=== PATIENT | male | born 1970 | race Caucasian/White ===

== ENCOUNTER 2024-12-12 20:23 | Emergency (ER) | payer MEDICAID, SELFPAY ==
--- OUTSIDE RECORDS SUMMARY | 2024-12-12 20:25 | XMS_ITS | Clinical Summary ---
Author Organization [facility] Address [address] [place] [id number] Care Team Providers Care Etcher Apprentice Name Role Phone Pcp, No Primary Care Provider Unavailabl e Allergies No known active allergies Medications acetaminophen (TYLENOL EXTRA STRGTH) 500 mg tablet Take 1 Tablet (500 mg) by mouth every 6 hours if needed. Max acetaminophen dose: 4000mg in 24 hrs. 0 2 Active hydrocortisone 0.5 % cream Apply topically to affected area(s) three times daily. 0 2 Active calcium carbonate (Tums) 200 mg calcium (500 mg) chewable tablet Chew 1 Tablet (500 mg) by mouth four times daily with meals and at bedtime. 0 2 Active medication order composer Triple antibiotic ointment PRN TID 0 2 Active meloxicam 15 mg tabletIndicati ons:Rib pain on left side,Chronic left shoulder pain Take 1 Tablet (15 mg) by mouth once daily. with food 30 Tablet 4 Active cyclobenzaprin e (FLEXERIL) 10 mg tabletIndicati ons:Rib pain on left side,Chronic left shoulder pain Take 0.5-1 Tablets (5-10 mg) by mouth at bedtime if needed (muscle tightness). 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 Heart Disease Father Relation Name Status Comments Brother Alive Father Maternal Grandfather Maternal Grandmother Mother Paternal Grandfather Paternal Grandmother Sister 1 Alive Sister 2 Alive Social History Tobacco Use Types Packs/Day Years Used Date Smoking Tobacco: Some Days Cigarettes 1.5 15 Smokeless Tobacco: Never Tobacco Cessation:Ready to Q uit: No; Counseling Given: Yes Alcohol Use Standard Drinks/Week Comments Not Currently 0 (1 standard drink = 0.6 oz pur e alcohol) none since 2018 PHQ-2 Answer Date Recorded PHQ-2 Score 1 01/14/2019 Social Connections Answer Date Recorded Frequency of Communication with Friends and Fami ly Not on file 03/02/2024 Financial Resource Strain Answer Date R ecorded Difficulty of Paying Living Expenses 3 02/21/2023 Difficulty of Paying Living Expenses Not on file 02/21/2023 Food Insecurity Answer Date Recorded Worried About Running Out of Food in the Last Ye ar 1 02/21/2023 Transportation Needs Answer Date Record ed Lack of Transportation (Medical) 1 02/21/2023 Housing Stability Answer Date Recorded Unable to Pay for Housing in the Last Year 1 02/21/2023 Sex and Gender Information Value Date Recorded Sex Assigned at Not on file Legal Sex Male 6:29 AM [employer] Gender Identity Not on file Sexual Orientation Not on file Occupation Industry Job Start Date Job End Date unemployed Not on file Not on file Not on file Obstetrics History Last Filed Vital Signs Vital Sign Reading Time Taken Comments Blood Pressure 122/72 12/04/2023 2:42 PM CDT Pulse 76 12/04/2023 2:42 PM CDT Temperature 36.9 C (98.4 F) 02/21/2023 2:56 PM CDT Respiratory Rate 14 02/21/2023 2:56 PM CDT Oxygen Saturation 97% 02/21/2023 2:56 PM CDT Inhaled Oxygen Concentration - - Weight 97.8 kg (215 lb 8 oz) 12/04/2023 2:42 PM CDT Height 177.8 cm (5' 10) 03/05/2022 12:10 PM CDT Body Mass Index 30.92 03/05/2022 12:10 PM CDT Plan of Treatment Health Maintenance Due Date Last Done Comments HIV for age 15-65 1986 BMI (ht and wt on same day) for age 18+ 1989 Hepatitis C screening for age 18-79 1989 Hepatitis B series for 19+ ( 1 of 3 - 19+ 3-dose series) 1990 Pneumococcal series for age 50+ (1 of 2 - PCV) 1990 Colonoscopy through age 75 2016 Depression screening for age 12+ 01/15/2020 01/15/20 19, 04/01/[address] (for lung CA) age 50-80 2021 Zoster (shingles) series for age 50+ (1 of 2) 2021 Lipids for age 45-75 01/15/2024 01/14/2019 COVID-19 vaccine series (2 - season) 2024 12/02/2020 Influenza Vaccine (Season Ended) 2025 Tetanus booster 04/01/2028 04/01/2018 Tdap Completed 04/01/2018 Procedures Procedure Name Priority Date/Time Associated Diagnosis Comments LIPID PANEL W REFLEX MEASURED LDL Add On 01/14/2019 4:04 PM CDT Chest tightness or pressure from Last 3 Months or Most Recently Relevant to Health Maintenance Results * LIPID PANEL W REFLEX MEASURED LDL (01/14/2019 4:04 PM CDT) CHOLESTEROL,TOTAL 125 100 - 199 mg/dL 01/15/2019 9:45 AM CDT [facility] TRIGLYCERIDES 86 <150 mg/dL 01/15/2019 9:45 AM CDT [facility] HDL CHOLESTEROL 55 >40 mg/dL 9 9:45 AM CDT [facility] NON-HDL CHOLESTEROL 70 <145 mg/dl 01/15/2019 9:45 AM CDT [facility] CHOL/HDL RATIO 2.27 <4.50 01/15/2019 9:45 AM CDT [facility] LDL CHOLESTEROL 53 <=130 mg/dL 01/15/2019 9:45 AM CDT [facility] PROVIDER ORDERED STATUS RANDOM 01/15/2019 9:45 AM CDT [facility] Blood BLOOD SPECIMEN / Unknown Venipuncture / Unknown 01/14/2019 4:04 PM CDT 01/14/2019 4:04 PM CDT us Latoya Uriarte DO CHEMISTRY Final Resul t [facility] [address] [place] [address], [place] from Last 3 Months or Most Recently Relevant to Health Maintenance Care Teams Etcher Apprentice Relationship Specialty Start Date End Date Pcp, No . PCP - General 07/28/24
[2024-12-12 20:29] VITALS: BP 138/82; PULSE 88; RESP 18; TEMP 36.4; O2SAT 100; BMI 33.1
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
[2024-12-12 21:02] LABS: Basophils Absolute Auto 0.02 K/uL (0.00-0.30); Basophils Percent Auto 0.2 % (0.0-3.0); Eosinophils Absolute Auto 0.11 K/uL (0.00-0.50); Eosinophils Percent Auto 1.1 % (0.0-7.0); Hemoglobin* 12.9 gm/dL (13.5-17.5); Immature Granulocytes Abs Auto 0.01 K/uL (0.00-0.30); Immature Granulocytes Pct Auto 0.1 %; Lymphocytes Percent Auto 15.3 % (20-44); Mean Corpuscular HGB Conc 35 gm/dL (32-36); Mean Corpuscular Hemoglobin 33 pg (26-34); Mean Corpuscular Volume 96 fL (80-100); Monocytes Percent Auto 5.9 % (0.0-11.0); Neutrophils Percent Auto 77.4 % (42.0-72.0); Platelet Count* 181 K/uL (140-440); RDW Coefficient of Variation % 12.4 % (11.5-15.5); Red Blood Count 3.86 m/uL (4.30-5.90); White Blood Count* 10.22 K/uL (4.50-11.00)
[2024-12-12 21:04] LABS: Slide Review Reflex No
[2024-12-12] MEDS: cefTRIAXone 1 GM in 0.9 % SODIUM CHLORIDE Mini-bag 100 ML IVPB (21:29)
[2024-12-12 21:41] LABS: Chloride* 103 mmol/L (96-114); Potassium* 3.6 mmol/L (3.6-5.1); Sodium* 139 mmol/L (135-149)
[2024-12-12 21:45] LABS: Anion Gap 5 mEq/L (7-15); Blood Urea Nitrogen* 20 mg/dL (7-30); Calcium* 9.2 mg/dL (8.4-10.6); Carbon Dioxide* 31 mmol/L (20-32); Creatinine* 0.8 mg/dL (0.5-1.5); Est. Creatinine Clearance* 106.79; Estimated Glomerular Filt Rate 106 ml/min; Glucose* 123 mg/dL (60-115)
[2024-12-12 21:48] LABS: C Reactive Protein* 6.5 mg/dL (0.5-1.0)
== END 2024-12-12 22:44 | disposition home or self-care (01) ==
PROVIDERS: Emergency Provider Family Medicine; PCP Family Medicine
DX: L03.116 Cellulitis of left lower limb (principal); Z89.431 Acquired absence of right foot
CPT/HCPCS: 36415; 80048; 85025; 86140; 96365; 99284; J0696

== ENCOUNTER 2025-01-13 00:28 | Emergency (ER) | payer MEDICAID, SELFPAY ==
[2025-01-13 00:33] VITALS: BP 128/81; PULSE 68; RESP 20; O2SAT 100; BMI 33.2
--- OUTSIDE RECORDS SUMMARY | 2025-01-13 01:05 | XMS_ITS | Clinical Summary ---
Author Organization [facility] Address [address] [place] [id number] Care Team Providers Care Laborer Pipelines Name Role Phone Pcp, No Primary Care [...] on file Legal Sex Male 6:29 AM [employer] Gender Identity Not on file Sexual Orientation [...] - 199 mg/dL 01/15/2019 9:45 AM CDT [facility] TRIGLYCERIDES 86 <150 mg/dL 01/15/2019 9:45 AM CDT [facility] HDL CHOLESTEROL 55 >40 mg/dL 9 9:45 AM CDT [facility] NON-HDL CHOLESTEROL 70 <145 mg/dl 01/15/2019 9:45 AM CDT [facility] CHOL/HDL RATIO 2.27 <4.50 01/15/2019 9:45 AM CDT [facility] LDL CHOLESTEROL 53 <=130 mg/dL 01/15/2019 9:45 AM CDT [facility] TR[facility] LAB[facility] PROVIDER ORDERED STATUS RANDOM 01/15/2019 9:45 AM CDT [facility] TR[facility] LAB[facility]ATORY Blood BLOOD SPECIMEN / Unknown Venipuncture / Unknown 01/14/2019 4:04 PM CDT 01/14/2019 4:04 PM CDT us Latoya Uriarte DO CHEMISTRY Final Resul t [facility] [address] [place] [address], [place] from Last 3 Months or Most Recently Relevant to Health Maintenance Care Teams Laborer Pipelines Relationship Specialty Start Date End Date Pcp, No . PCP - General 07/28/24
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
== END 2025-01-13 01:25 | disposition home or self-care (01) ==
LOC: ED 01:04
PROVIDERS: Emergency Provider Family Medicine; PCP Family Medicine
DX: I83.12 Varicose veins of left lower extremity with inflammation (principal); I83.92 Asymptomatic varicose veins of left lower extremity
CPT/HCPCS: 99283

== ENCOUNTER 2025-01-18 12:09 | Outpatient (CLI) | payer MEDICAID, SELFPAY ==
--- NOTE | 2025-01-18 12:15 | CRLHL7_ITS ---
For Patients: As a result of the Century Cures Act, medical imaging exams and procedure reports are released immediately into your electronic medical record. You may view this report before your referring provider. If you have questions, please contact your health care provider. INDICATION: Swelling. TECHNIQUE: Ultrasound venous duplex lower left extremity. Compression venous exam was performed using pedersen-scale, color Doppler, and spectral Doppler analysis. COMPARISON: None. FINDINGS: Deep veins: Sonographic imaging demonstrates the left common femoral, deep femoral, superficial femoral, popliteal, posterior tibial and the contralateral right common femoral veins to be fully compressible with normal color Doppler blood flow. Superficial veins: Greater saphenous vein is fully compressible. IMPRESSION: No sign of deep venous thrombosis in the left lower extremity. Dictated by Asher Thomas MD @ 01/18/2025 12:55:30 PM (Electronically Signed)
--- OUTSIDE RECORDS SUMMARY | 2025-01-19 02:25 | XMS_ITS | Clinical Summary ---
Author Organization [facility] Address [address] [place] [id number] Care Team Providers Care Carpenter Helper Name Role Phone Pcp, No Primary Care [...] on file Legal Sex Male 6:29 AM PARTS COUNTERPERSON Gender Identity Not on file Sexual Orientation [...] 03/05/2022 12:10 PM CDT Plan of Treatment Upcoming Encounters Date Type Department Care Team (Late st Contact Info) Description 02/16/2025 1:00 PM CDT Office Visit [facility] [address] [place] [address] oB Barker DPM [address] [place] [address] Health Maintenance Due Date Last Done Comments [...] - 199 mg/dL 01/15/2019 9:45 AM CDT [facility] TRIGLYCERIDES 86 <150 mg/dL 01/15/2019 9:45 AM CDT [facility] HDL CHOLESTEROL 55 >40 mg/dL 9 9:45 AM CDT [facility] NON-HDL CHOLESTEROL 70 <145 mg/dl 01/15/2019 9:45 AM CDT [facility] CHOL/HDL RATIO 2.27 <4.50 01/15/2019 9:45 AM CDT [facility] LDL CHOLESTEROL 53 <=130 mg/dL 01/15/2019 9:45 AM CDT [facility] PROVIDER ORDERED STATUS RANDOM 01/15/2019 9:45 AM CDT [facility] Blood BLOOD SPECIMEN / Unknown Venipuncture / Unknown 01/14/2019 4:04 PM CDT 01/14/2019 4:04 PM CDT us Latoya Jaureguit DO CHEMISTRY Final Resul t [facility] [address] [place] [address], [place] from Last 3 Months or Most Recently Relevant to Health Maintenance Insurance MEDICAID Care Teams Carpenter Helper Relationship Specialty Start Date End Date Pcp, No . PCP - General 07/28/24
== END 2025-01-18 12:10 | disposition home or self-care (01) ==
LOC: US 12:11
PROVIDERS: PCP Family Medicine; Visit Provider Family Medicine
DX: R22.42 Localized swelling, mass and lump, left lower limb (principal)
CPT/HCPCS: 93971